=== PATIENT | male | born 1960 | race Caucasian/White ===

== ENCOUNTER 2020-12-24 18:30 | Inpatient (IN) | payer BC, SELFPAY ==
--- NOTE | 2020-12-24 19:36 | P.CONIM_ITS ---
Providers/Reason For Consult Consulting Physician/Specialty*: Maguire/urology Reason for Consult*: Obstructing LEFT ureteral calculus, elevated white count, status post remote splenectomy Attending Physician: Petar García MD History of Present Illness History of Present Illness Umberto Funez is a 60 year old male transferred as a direct admission from [facility] to [facility] for further evaluation of a LEFT distal ureteral calculus with hydroureteronephrosis proximal to the stone. No concerning additional features included a white count of 22,000 per ER physician and the potential risk for septic complications due to prior splenectomy. No clear cause of infectious concerns was identified at initial evaluation at [facility] so his presumed that he might have an infection related to the stone Initially he was seen on 12/23/2020 with complaints of hematuria that had begun on approximately 12/20/2020. Denied any dysuria frequency urgency. He had had some flank pain it was not described as significant. Work-up at that time showed a white count of 13.8, hemoglobin of 15. Creatinine was 0.9, liver functions normal. Urinalysis: 3+ blood, nitrite negative, leukocyte negative. CT scan showed a nonobstructing left renal calculus. A 7 x 8 mm left mid pole stone was identified and there is no hydronephrosis. It was presumed that maybe the stone was creating some irritation leading to the hematuria. He was discharged for expectant therapy with recommendations for urologic follow-up. Represented back to the emergency department at [facility] on 12/24/2020 with LEFT flank pain radiating to the left groin. Pain was described at its worst a 10 out of 10. Apparently no nausea or vomiting or changes in bowel habits. Not associated with any activity. Additional work-up included a white count of 22.5 up from 13.8 yesterday, the day before. Unchanged hemoglobin. Glucose was 148, creatinine was 1.0, liver functions were normal. UA again showed hematuria only without evidence of infection. CT scan was repeated and now it showed a 5 mm stone in the LEFT DISTAL URETER with new onset of hydronephrosis. Based on the patient's history of a splenectomy, and significant jump in his white count, the [facility] ED physician requested admission for IV antibiotics and further evaluation. The images from [facility] were able to be transmitted electronically. My review shows: On 12/23/2020 he had a series of stones in the mid left upper pole with no evidence of ureteral calculi. No hydronephrosis was noted On today's images there appear to be actually 2 stones in the left distal ureter, one at the left UVJ and a smaller 1 several centimeters. The numbers of stone seen in the interpolar and upper pole areas appear to be smaller and there is a couple little small stones in the left lower pole now that were not there on yesterday's CT scan. Additional medical concerns: 1. Hypertension 2. Diabetes mellitus 3. History of stones 4. Status post splenectomy 5. History of coronary artery disease status post stenting after mild heart attack 6. History of diverticulitis treated with antibiotics alone. Based on the concern for possible nonsimple obstructing stone it was requested that the patient be admitted to the hospitalist service and I would serve as a consult. For now we will continue IV antibiotic started in [facility] (Rocephin 1 g every 12 hours to be modified per hospitalist as indicated. Continue home medications for now I reviewed that from a urologic perspective this appears to be more just a stone causing typical stone symptoms in the absence of an infection. So far had not been out of completely rule out an infection associated with a stone but there is no clinical evidence of that. The wildcard appears to be the leukocytosis of unclear etiology and the risk factor of post splenectomy necessitates more aggressive management until clarified. A culture was sent at [facility] and is pending. KUB in the morning Repeat labs in the morning Keep on clear liquids for now just in case there is evidence of a progression of infection concern. Review of Systems Const: Denies: fever(s) or chills Eyes: Denies: change in vision or blurry vision ENMT: Denies: throat pain or hoarseness Card: Denies: chest pain, palpitations or dyspnea on exertion Resp: Denies: dyspnea, productive cough or wheezing GI: Reports: abdominal pain, nausea and vomiting (X1 in [facility] today); Denies: change in bowel habits : Reports: flank pain, urinary frequency, urinary urgency, urinary hesitancy and other (He reports some more recent chronic lower urinary tract symptoms possibly r) Musc: Reports: back pain; Denies: extremity swelling or joint redness Skin/Breast: Denies: rash Neuro: Denies: confusion, Slurred speech present or seizure-like activity Psych: Denies: anxiety or depression Endo: Denies: excessive sweating or flushing Bowen/Lymph: Reports: easy bruising All/Imm: Denies: urticaria or acute wheezing Meds/Allergies Home Medications and Allergies Home Medications Medication Instructions Recorded Confirmed Last Taken Type amlodipine [Norvasc] 10 mg PO BEDTIME 12/24/20 12/24/20 Unknown History aspirin 81 mg PO DAILY 12/24/20 12/24/20 Unknown History atorvastatin 20 mg PO BEDTIME 12/24/20 12/24/20 Unknown History clopidogrel [Plavix] 75 mg PO DAILY 12/24/20 12/24/20 Unknown History hydralazine 50 mg PO BID 12/24/20 12/24/20 Unknown History lisinopril 40 mg PO DAILY 12/24/20 12/24/20 Unknown History metformin 1,000 mg PO BID 12/24/20 12/24/20 Unknown History metoprolol succinate 25 mg PO DAILY 12/24/20 12/24/20 Unknown History Allergies Allergy/AdvReac Type Severity Reaction Status Date / Time No Known Allergies Allergy Verified 12/24/20 20:03 PFSH Acute PFSH: Surgical History (Updated 12/24/20 @ 19:52 by Sunny Maguire MD) History of coronary artery stent placement History of splenectomy Family History (Updated 12/24/20 @ 19:50 by Sunny Maguire MD) Other No significant family history Social History (Updated 12/24/20 @ 19:51 by Sunny Maguire MD) Smoking and tobacco status: never smoked Alcohol intake: never Substance/Drug Use: never Physical Exam Const: COMMON NORMALS: alert and well nourished GENERAL APPEARANCE: well kempt and well developed ORIENTATION/CONSCIOUSNESS: not confused OTHER: Uncomfortable due to left renal colic HENMT: COMMON NORMALS: normocephalic and atraumatic HEAD & SCALP: normocephalic and atraumatic Eye: COMMON NORMALS: conjunctivae normal and no scleral icterus CONJUNCTIVA: Yes conjunctivae normal Neck/C-Spine: COMMON NORMALS: full ROM GENERAL: Yes normal visual inspection Lymph: LYMPHATIC: no lymphadenopathy noted and no lymphedema noted Resp: COMMON NORMALS: normal respiratory effort EFFORT & INSPECTION: No labored and No Actively coughing Cardio: COMMON NORMALS: regular rate and regular rhythm RATE: regular rate RHYTHM: regular rhythm BRUITS: no carotid bruits GI: COMMON NORMALS: Soft to palpation and no masses PALPATION: Yes Soft to palpation and Yes Tenderness to palpation present (GI) (Left CVA) Details: LLQ and LUQ : COMMON NORMALS: Yes normal external exam, Yes Testes normal, Yes scrotum normal, Yes no scrotal swelling and Yes No hernias present BLADDER/KIDNEY EXAM: Yes CVA tenderness Back/Pelvis: GENERAL BACK: Yes CVA tenderness CVA tenderness: left Extremity: COMMON NORMALS: no clubbing, cyanosis or edema Neuro: COMMON NORMALS: no focal motor deficits SENSORIUM/ORIENTATION: Yes alert Psych: COMMON NORMALS: mental status grossly normal APPEARANCE: Yes grossly normal and Yes well kempt ATTITUDE: Yes calm and Yes engaged Skin: COMMON NORMALS: no rashes or lesions noted and no jaundice GENERAL SKIN EXAM: no rashes or lesions noted A&P Assessment and plan (1) Leukocytosis: Status: Acute (2) Left ureteral calculus: Status: Acute (3) Coronary artery disease: Status: Acute (4) Hypertension: Status: Acute (5) Diabetes: Status: Acute (6) Urolithiasis: Status: Acute Consult Attestations Medical Necessity Statement: Uncontrolled pain from left distal ureteral stone Coding Level of Care Code Acute Machine Operator Transplanter for Chg Fwd Exam Comprehensive Diagnoses Leukocytosis D72.829 Left ureteral calculus N20.1 Coronary artery disease I25.10 Hypertension I10 Diabetes E11.9 Urolithiasis N20.9 Time Spent (min) 95 Comment Including outside record review, film review, [id number] encounter time, documentation
[2020-12-24 20:23] VITALS: BMI 34.9
[2020-12-24 20:32] VITALS: BP 171/84; PULSE 61; RESP 18; TEMP 36.9; O2SAT 95
[2020-12-24] MEDS: HYDROcodone-acetaminophen 5-325 mg Tablet 1 TAB PO (21:36)
[2020-12-24] MEDS: atorvastatin 40 mg Tablet 20 MG PO (21:37)
[2020-12-24] MEDS: amlodipine 10 mg Tablet PO (21:37)
[2020-12-24] MEDS: sodium chlor 0.9% + KCl 20 mEq 20 MEQ/1,000 ML BAG 100 MEQ IV (22:00)
[2020-12-24] MEDS: cefTRIAXone 1,000 MG in sodium chloride 0.9% (plus) 50 ML 100 MG IV (22:02)
--- NOTE | 2020-12-24 23:06 | PM.HP ---
Providers/Chief Complaint Admitting Physician: Colette Bose MD Primary Care Provider: In [place], [place] Chief Complaint: L kidney stone, leukocytosis History of Present Illness Umberto Funez is a 60 year old male who presented to [facility] emergency room with complaints of worsening left flank pain, extending into his groin. He had been seen in the emergency room there on December 23 for hematuria and found to have nonobstructing kidney stones. White count was 13,000 and BUN and creatinine 13/0.9. He was discharged with plan for outpatient follow-up. On December 24 he was not necessarily having any further hematuria but did have the flank pain is noted. It was increasing in severity. Repeat CT imaging indicated an obstructive stone in the left this time and white count was up to 22,000. He was given Rocephin and decision was made to transfer for urological evaluation. BUN and creatinine were 18/1.0. Case was discussed with Dr. Maguire here who recommended admission to hospitalist service. Dr. Lisa excepted Mr. Funez. He continues to have flank pain on the left side that he describes as severe. He has no prior history of kidney stones. He does have a sister with kidney stones. Patient is from [facility] and was in [facility] area visiting for a month. He has had 1 episode of vomiting which she attributed to severe pain and some nausea. Continues to have some hematuria. No reported fevers. Review of Systems Const: Denies: fever(s) or chills Eyes: Denies: change in vision ENMT: Denies: throat pain or nasal congestion Card: Reports: other (Exercising regularly now); Denies: chest pain, palpitations or edema Resp: Denies: dyspnea, productive cough or non-productive cough GI: Reports: nausea and vomiting (X1 when his pain was the worst); Denies: diarrhea, constipation, hematochezia or melena : Reports: flank pain and hematuria; Denies: difficulty urinating or dysuria Musc: Reports: back pain; Denies: extremity pain Skin/Breast: Denies: rash or sores Neuro: Denies: headache(s), numbness in extremities or weakness in extremities Psych: Denies: anxiety or depression Bowen/Lymph: Denies: easy bruising or easy bleeding Medications/Allergies Home Medications Medication Instructions Recorded Confirmed Last Taken Type amlodipine [Norvasc] 10 mg PO BEDTIME 12/24/20 12/24/20 Unknown History atorvastatin 20 mg PO BEDTIME 12/24/20 12/24/20 Unknown History clopidogrel [Plavix] 75 mg PO DAILY 12/24/20 12/24/20 Unknown History hydralazine 50 mg PO BID 12/24/20 12/24/20 Unknown History lisinopril 40 mg PO DAILY 12/24/20 12/24/20 Unknown History metformin 1,000 mg PO BID 12/24/20 12/24/20 Unknown History metoprolol succinate 25 mg PO DAILY 12/24/20 12/24/20 Unknown History aspirin [Aspirin Low-Strength] 81 mg PO DAILY 12/25/20 12/25/20 Unknown History Allergies Allergy/AdvReac Type Severity Reaction Status Date / Time No Known Allergies Allergy Verified 12/24/20 20:03 PFSH Acute PFSH: Medical History (Updated 12/25/20 @ 09:18 by Colette Bose MD) Coronary artery disease Diabetes mellitus, type II non insulin requiring Diverticulosis with several admissions for diverticulitis Hyperlipidemia Hypertension Surgical History (Updated 12/25/20 @ 09:07 by Colette Bose MD) History of coronary artery stent placement History of splenectomy Family History (Updated 12/25/20 @ 09:19 by Colette Bose MD) Sister Kidney stones Social History Smoking and tobacco status: never smoked Alcohol intake: never Substance/Drug Use: never Vitals/I&O/Wt Last Vital Signs Temp 98.4 F 12/24/20 20:32 Pulse 61 12/24/20 20:32 Resp 18 12/24/20 20:32 BP 171/84 12/24/20 20:32 Pulse Ox 95 12/24/20 20:32 12/24/20 12/24/20 12/25/20 14:59 22:59 06:59 Output Total 200 / 200 Balance -200 / -200 Weight last 48 hrs Weight 95.254 kg Physical Exam Narrative: EXAM NARRATIVE: Constitutional: Awake and alert, able to provide history HEENT: Normocephalic, extraocular movements are intact, moist membranes Neck: Supple Respiratory: Clear to auscultation bilaterally Cardiovascular: Regular rhythm Abdomen: Left flank pain extending into the left lower quadrant and left groin, normoactive bowel sounds Extremities: Trace edema, no tenderness Skin: Dry, no rashes or significant bruising Neuro: Speech clear, face symmetric, moves all extremities Psych: Normal affect Data : 12/25/20 05:16 12/25/20 05:16 Other data: Prior or outside records reviewed: Records from [facility] emergency room Discussed with other providers: Dr Maguire A&P Assessment and plan (1) Urolithiasis: With hematuria, left flank pain, left groin pain Status: Acute Qualifiers: Urinary calculus location: ureter Qualified Code(s): N20.1 - Calculus of ureter (2) Leukocytosis: Reports chronic leukocytosis which upon review of laboratory history and in destiny on his phone looks to be baseline of 12-13,000 over the several years I was able to view. Current values are higher than baseline and concerning for reaction to acute infectious process. No recent fevers. No upper respiratory symptoms. Has had one episode of mild vomiting which he attributes to pain. No diarrhea or other recent change in bowel movements. 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 transplanted heart: [place] heart Associated angina: without angina Qualified Code(s): I25.10 - Atherosclerotic heart disease of [place] coronary artery without angina pectoris Additional A&P Information Inpatient admission Appreciate Dr. Maguire's assistance in care Continue Rocephin Repeat CBC and renal function in the morning Monitor urinary symptoms and urine output Continue IV fluids Pain control Flomax Monitor for development of GI symptoms or other potential foci of infection Continue home medications with the exception of Metformin SCDs for DVT prophylaxis, no pharmacological DVT prophylaxis secondary to hematuria and potential need for intervention Supportive care otherwise Plans were discussed with patient and he was given an opportunity to ask questions Anticipated disposition Home with those whom he is staying with in the area. He will need local provider to follow-up with while he is here. Plan had been for him to be here for about a month before heading back to [place] where he lives. Full code Attestations Medical Necessity Statement*: Anticipated stay greater than two midnights in patient with kidney stones, elevation in wbc, asplenic. Plans as indicated. Coding Level of Care Code Acute Electroencephalographic Technologist for [facility] Fwd Diagnoses Urolithiasis N20.1 Urinary calculus location: ureter Leukocytosis D72.829 Leukocytosis type: unspecified Diabetes E11.65 Diabetes mellitus type: type 2 Diabetes mellitus correction insulin use: without correction use Diabetes mellitus complication status: with hyperglycemia Hypertension I10 Hypertension type: essential hypertension Coronary artery disease I25.10 Coronary Disease-Associated Artery/Lesion type: [place] artery [place] vs. transplanted heart: [place] heart Associated angina: without angina
[2020-12-24 23:14] VITALS: RESP 16
[2020-12-24] MEDS: morphine 4 mg/mL SDV 1 mL 2 MG IVP (23:14)
[2020-12-25] VITALS (18 sets, daily range): BP systolic 100–161; BP diastolic 64–96; PULSE 62–77; RESP 11–18; TEMP 36.3–37.4; O2SAT 93–97
--- NOTE | 2020-12-25 | SCC_ITS ---
Procedure Done: 1. Cystoscopy left retrograde ureteropyelogram 2. Left ureteroscopy laser lithotripsy, stent (7 Kis[place]ili by 26 cm double-pigtail without string) 21.9 seconds of fluoroscopic guidance, for a cumulative dose of 4.09 mGy, was provided to Dr. Maguire by the radiology department. C-arm images of the abdomen were saved for the patient's permanent record. [facility]
[2020-12-25] MEDS: HYDROcodone-acetaminophen 5-325 mg Tablet 1 TAB PO ×3 (01:59→21:41)
[2020-12-25] MEDS: morphine 4 mg/mL SDV 1 mL 2 MG IVP (03:27)
--- NOTE | 2020-12-25 06:00 | XRR_ITS ---
PROCEDURE INFORMATION: Exam: XR Abdomen Exam date and time: 12/25/2020 6:00 AM Age: 60 years old Clinical indication: Pain and condition or disease; Kidney or ureter condition; Calculus (stone) in ureter; Other: Left flank pain; Prior surgery; Surgery type: Spleen; Additional info: Left distal stone TECHNIQUE: Imaging protocol: XR of the abdomen. Views: Frontal supine view of the abdomen. 1 View. COMPARISON: CT abdomen pelvis wo con [id number] 12/24/2020 12:27 PM FINDINGS: Gastrointestinal tract: There is a moderate amount of stool throughout the colon, suggestive of constipation. There is mildly air distended loops of small bowel in the right lower quadrant. No air-fluid levels seen. Intraperitoneal space: No pneumoperitoneum identified. There is a 1.4 cm calcific density projecting over the left mid kidney, corresponding to nonobstructing stone seen on recent abdomen CT. Bones/joints: Mild dextrocurvature of the lumbar spine and multilevel degenerative changes seen. XR/XR KUB [id number] IMPRESSION: 1. Nonspecific bowel gas pattern. 2. Imaging findings suggestive of constipation.
[2020-12-25 06:15] LABS: Basophils # 0.1 10^3/uL (0.0-0.1); Basophils % 0.3 %; Eosinophils # 0.1 10^3/uL (0.0-0.8); Eosinophils % 0.3 %; Hematocrit 44.8 % (42.0-52.0); Hemoglobin 14.4 g/dL (11.7-16.6); Lymphocytes # 3.1 10^3/uL (0.8-4.8); Lymphocytes % 13.7 %; Mean Corpuscular HGB Conc 32.1 g/dL (30.0-36.0); Mean Corpuscular Hemoglobin 29.2 pg (28.0-34.0); Mean Corpuscular Volume 90.9 fL (80-94); Mean Platelet Volume 12.9 fL (7.4-10.4); Monocytes # 2.8 10^3/uL (0.2-0.9); Monocytes % 12.7 %; Neutrophils % 72.6 %; Nucleated Red Blood Cells % 0 %; Platelet Count 209 10^3/cmm (130-400); Red Blood Count 4.93 10^6/uL (4.1-5.3); Red Cell Distribution Width 15.6 % (12.1-15.1); White Blood Count 22.3 10^3/uL (4.0-10.0)
[2020-12-25 06:28] LABS: Alanine Aminotransferase 22 U/L (0-41); Albumin Level 3.6 g/dL (3.5-5.2); Alkaline Phosphatase 71 IU/L (40-130); Anion Gap 14.9 (5-19); Aspartate Amino Transferase 21 U/L (0-40); Blood Urea Nitrogen 14 mg/dL (8-23); Calcium 8.1 mg/dL (8.5-10.5); Carbon Dioxide 25 mmol/L (22-29); Chloride 104 mmol/L (98-107); Globulin 2.8 g/dL (1.3-4.6); Glomerular Filtration Rate 55.9 mL/min (90-130); Glucose 184 mg/dL (65-115); Osmolality Calculated 295 mOsm/kg (285-295); Potassium 3.9 mmol/L (3.5-5.1); Sodium 140 mmol/L (136-145); Total Bilirubin 0.6 mg/dL (0.15-1.2); Total Protein 6.4 g/dL (6.6-8.7)
--- NOTE | 2020-12-25 07:57 | XR_ITS ---
WS: [id number] PORTABLE CHEST HISTORY: sob COMPARISON: None available. Lung volumes are decreased due to poor inspiration. Very minimal atelectasis posterior to the LEFT he art. No pleural effusion or pneumothorax. Cardiac size: Normal. Mediastinum/Aorta: Normal mediastinum. No osseous abnormality seen. XR/XR chest 1V portable [id number] IMPRESSION: Very minimal subsegmental atelectasis posterior to the LEFT heart. No pneumonia .
[2020-12-25 08:41] LABS: C Reactive Protein 25.8 mg/L (0.0-4.9)
[2020-12-25 08:48] LABS: Procalcitonin 0.21 ng/mL (0-0.5)
--- NOTE | 2020-12-25 09:20 | ECG_ITS ---
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 [email or web address]
[2020-12-25 09:36] LABS: Erythrocyte Sedimentation Rate 10 mm/hr (0-10)
--- NOTE | 2020-12-25 09:48 | PC.CHAP ---
Pastoral Care Encounter/Spiritual Assessment Type of Contact [] Declined center aisle cashier visit [] Patient/Family/Request visit [] Outpatient visit [] Follow-up visit [] Physician referral [] Code/Alert x] Routine visit [] Staff referral [] Actively dying [x] Patient sleeping [] Family support [] [] Out of room [] Palliative care [] [] Receiving care in room [] Pre-surgical visit [] Trauma [] Long length of stay [] ICU visit [] Other: Relational/Emotional Strength [] Patient feels connected with others/family/visitors/staff [] Distress [] Loneliness/isolation [] Abandonment Spirituality of Patient [] Person of Jocelin [] Attends Yarsani of their Jocelin [] Believes in Prayer [] Reads Bible or Anabaptism materials [] There are Spiritual issues to be addressed Emergency Room Orderly Interventions [] Prayer [] Active listening [] Non-anxious presence [] Spiritual/emotional support [] Crisis/trauma care [] Spiritual counseling [] Bereavement support [] Provided bereavement packet [] Provided Bible/devotional materials [] Provided toy/stuffed animal, coloring book to patient or family member [] Provided Communion [] Anointing/[place] [] Salvation [] Completed spiritual assessment [] Other: Impact on Illness or Injury [] Angry [] Fearful [] Anxious [] Often cries [] Exhaustion [] Unable to work [] Unable to attend denominational [] Unable to walk/stand [] Unable to read [] Unable to drive [] Unable to eat/drink [] Unable to sleep [] Unable to be with family [] Patient intubated [] Other: Summary Time spent with patient
[2020-12-25] MEDS: aspirin 81 mg EC Tablet PO (10:29)
[2020-12-25] MEDS: docusate sodium 100 mg Capsule PO ×2 (10:29→21:38)
[2020-12-25] MEDS: lisinopril 20 mg Tablet 40 MG PO (10:29)
[2020-12-25] MEDS: metoprolol succinate ER (24 HR) 25 mg Tablet PO (10:29)
[2020-12-25] MEDS: hyDRALAzine 50 mg Tablet PO ×2 (10:30→21:38)
[2020-12-25] MEDS: famotidine 20 mg Tablet PO ×2 (10:30→21:38)
[2020-12-25] MEDS: clopidogrel 75 mg Tablet PO (10:30)
[2020-12-25] MEDS: tamsulosin 0.4 mg Capsule PO ×2 (10:31→10:56)
[2020-12-25] MEDS: sodium chlor 0.9% + KCl 20 mEq 20 MEQ/1,000 ML BAG 75 MEQ IV ×2 (10:56→21:36)
[2020-12-25] MEDS: piperacillin-tazobactam 3.375 GM in sodium chloride 0.9% (plus) 50 ML IV ×2 (10:58→21:37)
--- NOTE | 2020-12-25 11:22 | USCV_ITS ---
Umberto Funez Age: 60 Gender: M : 1960 Exam Date: 12/25/2020 16:13 Ordering Phys: Petar García MD Technologist: Exam Location: [facility] Indication: EDEMA HISTORY: Lower extremity edema. PROCEDURES: The venous duplex Doppler examination of both lower extremities was performed in the standard fashion. The following venous structures were evaluated: common femoral vein, profunda vein, proximal portion of the greater saphenous vein, superficial femoral vein, and the popliteal vein. In addition, the posterior tibial and peroneal trunk were evaluated. Bilaterally, the common femoral, superficial femoral, profunda femoral, popliteal, posterior tibial, greater saphenous veins, and the peroneal trunk were identified and interrogated in the standard fashion. These veins were found to be easily compressible with spontaneous blood flow. No evidence of insufficiency or thrombus noted. FINDINGS: Normal 2-D Doppler and augmentation and compressibility throughout the lower extremity venous structures. Additional imaging through the proximal calf veins also reveals no thrombus. Limited evaluation of the greater saphenous vein is patent with no thrombus.. CONCLUSIONS No evidence of DVT in the above-mentioned identifiable veins. Dr Isabela Stephenson MD [facility] (Electronically Signed) Final Date: 26 December 2020 14:02 S
[2020-12-25 12:41] LABS: Glucose Point of Care 145 mg/dL (70-110)
[2020-12-25 12:43] LABS: Positive M 1
[2020-12-25 12:44] LABS: White Blood Count 25.1 10^3/uL (4.0-10.0)
[2020-12-25 12:47] LABS: LAB Peripheral Smear Sent for Review
[2020-12-25 12:59] LABS: Total Cells Counted 100 (0-100)
[2020-12-25 13:03] LABS: Absolute Eosinophils 0.5 10^3/cmm (0.0-0.7); Absolute Neutrophil 19.3 10^3/cmm (1.4-6.5); Absolute Segmented Neutrophil 19.3 10/cmm (1.6-7.1); Eosinophils 2 %; Lymphocytes 8 %; Lymphocytes Absolute 4.3 10^3/cmm (1.2-3.4); Platelet Estimate Normal (Normal); Segmented Neutrophils 77 %
[2020-12-25 13:04] LABS: Poikilocytosis Trace
--- NOTE | 2020-12-25 13:09 | PM.PN ---
Subjective Subjective: Interval history: Still having significant pain overnight. Was requiring both parenteral and oral narcotics. White count this morning was 22 unchanged. This afternoon at 12 it was 25. He is now having a low-grade temperature at 99.3. In addition his creatinine has bumped up slightly. No evidence of hemodynamic instability. The source of his leukocytosis is still in the history but he has only been identified right now is having a stone. He has had 2 urinalysis that have been unremarkable 1 before there was any evidence of obstruction. Based on the changes today I recommended proceeding later this afternoon urgently for a cystoscopy and stent placement and if everything goes well intraoperatively ureteroscopy possible laser and stone fragment removal. This takes into consideration the higher risk of infectious complications post splenectomy. Medications: Reviewed: Yes Vitals/I&O/Wt Last Vital Signs Temp 99.3 F 12/25/20 11:55 Pulse 76 12/25/20 11:55 Resp 18 12/25/20 11:55 BP 157/89 12/25/20 11:55 Pulse Ox 93 12/25/20 11:55 12/24/20 12/25/20 12/25/20 22:59 06:59 14:59 Intake Total 50 / 50 120 / 170 1120 / 1120 Output Total 200 / 200 700 / 900 400 / 400 Balance -150 / -150 -580 / -730 720 / 720 Weight last 48 hrs Weight 210 lb Physical Exam Const: COMMON NORMALS: no acute distress, alert and well nourished GENERAL APPEARANCE: well kempt and well developed ORIENTATION/CONSCIOUSNESS: not confused HENMT: COMMON NORMALS: normocephalic and atraumatic HEAD & SCALP: normocephalic and atraumatic Eye: COMMON NORMALS: conjunctivae normal and no scleral icterus CONJUNCTIVA: Yes conjunctivae normal Neck/C-Spine: COMMON NORMALS: full ROM GENERAL: Yes normal visual inspection Resp: COMMON NORMALS: normal respiratory effort EFFORT & INSPECTION: No labored and No Actively coughing : MALE GROIN/PERINEUM EXAM: No ecchymosis PENIS: normal penis MEATUS: meatus normal, no meatla discharge and No Blood at meatus present SCROTUM: Yes testes descended bilaterally, No edematous and No scrotal swelling TESTES: No absent testicle, No testicular tenderness, No testicular mass, Yes epididymides normal and No epididymal tenderness Extremity: COMMON NORMALS: no clubbing, cyanosis or edema Neuro: COMMON NORMALS: no focal motor deficits SENSORIUM/ORIENTATION: Yes alert Psych: COMMON NORMALS: mental status grossly normal APPEARANCE: Yes grossly normal and Yes well kempt ATTITUDE: Yes calm and Yes engaged Skin: COMMON NORMALS: no rashes or lesions noted and no jaundice GENERAL SKIN EXAM: no rashes or lesions noted Data : 12/25/20 12:13 12/25/20 05:16 Micro: Microbiology 12/25/20 12:19 Blood Culture - Preliminary Blood SPECIMEN COLLECTED 12/25/20 12:13 Blood Culture - Preliminary Blood SPECIMEN COLLECTED A&P Assessment and plan (1) Left ureteral calculus: Based on the above information I recommended taken to the operating room this afternoon for cystoscopy, retrograde, ureteroscopy, laser, stent if all goes well. At the very minimum though the goal will be to place a stent to relieve obstruction. 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 Will be going to surgery today. Coding Level of Care Code Acute [facility] Retrieval [facility] Diagn[facility] Left ureteral calculus N20.1 History of splenectomy Z90.81 Diabetes E11.65 Diabetes mellitus type: type 2 Diabetes mellitus terminal gauger supervisor insulin use: without terminal gauger supervisor use Diabetes mellitus complication status: with hyperglycemia Leukocytosis D72.829 Leukocytosis type: unspecified Hypertension I10 Hypertension type: essential hypertension
[2020-12-25 13:31] LABS: Hematocrit 45.8 % (42.0-52.0); Hemoglobin 14.9 g/dL (11.7-16.6); Mean Corpuscular HGB Conc 32.5 g/dL (30.0-36.0); Mean Corpuscular Hemoglobin 29.2 pg (28.0-34.0); Mean Corpuscular Volume 89.8 fL (80-94); Platelet Count 216 10^3/cmm (130-400); Red Cell Distribution Width 15.4 % (12.1-15.1)
--- NOTE | 2020-12-25 14:07 | PM.PN ---
Subjective Subjective: Interval history: This morning patient was examined, he does report that he recently traveled from [facility] to [place], no calf pain, no calf swelling, his white counts of up to 22.5, had a low-grade fever, denies any known exposure to COVID-19, does persistently have left flank pain with hematuria, does report a history of extensive diverticulitis, he tells me that it was quite severe that his physician was thinking about a colon resection, he does have some left lower quadrant pain, but is more around the flank, he is constipated, no bloody or black stools Vitals/I&O/Wt Last Vital Signs Temp 99.3 F 12/25/20 11:55 Pulse 76 12/25/20 11:55 Resp 18 12/25/20 11:55 BP 157/89 12/25/20 11:55 Pulse Ox 93 12/25/20 11:55 12/24/20 12/25/20 12/25/20 22:59 06:59 14:59 Intake Total 50 / 50 120 / 170 1120 / 1120 Output Total 200 / 200 700 / 900 400 / 400 Balance -150 / -150 -580 / -730 720 / 720 Weight last 48 hrs Weight 95.254 kg Physical Exam Const: COMMON NORMALS: no acute distress and patient oriented x3 Resp: COMMON NORMALS: normal respiratory effort, No retractions, No use of accessory muscles and clear to auscultation bilaterally AUSCULTATION: clear to auscultation bilaterally Cardio: COMMON NORMALS: regular rate, regular rhythm, S1 normal heart sound present and S2 normal heart sound present RATE: regular rate RHYTHM: regular rhythm HEART SOUNDS: S1 normal heart sound present and S2 normal heart sound present GI: COMMON NORMALS: Normal to inspection, nondistended, normoactive bowel sounds present and Soft to palpation INSPECTION: Yes normal to inspection PALPATION: Yes Soft to palpation and Yes Tenderness to palpation present (GI) Details: LLQ; Negative for RLQ, LUQ and RUQ Back/Pelvis: OTHER: Left CVA tenderness Extremity: COMMON NORMALS: no pedal edema Neuro: COMMON NORMALS: patient oriented x3 Psych: COMMON NORMALS: mental status grossly normal Data : 12/25/20 12:13 12/25/20 05:16 Micro: Microbiology 12/25/20 12:19 Blood Culture - Preliminary Blood SPECIMEN COLLECTED 12/25/20 12:13 Blood Culture - Preliminary Blood SPECIMEN COLLECTED A&P Assessment and plan (1) Urolithiasis: With hematuria, left flank pain, left groin pain Status: Acute Qualifiers: Urinary calculus location: ureter Qualified Code(s): N20.1 - Calculus of ureter (2) Leukocytosis: -Increasing leukocytosis up to 25.1, manual differential shows atypical lymphocytes, absolute neutrophilia, low-grade fevers 99.3, ESR 11, CRP 25.8, pro-Pérez 0.21 complaints of left flank pain, hematuria -CT scan from [facility] does show left nephrolithiasis, obstructive, w evidence hydronephrosis -Status post splenectomy -Findings concerning for obstructive uropathy, left pyelonephritis, UTI -He does have a history of diverticulitis, does have some left lower quadrant pain, could have some component of left diverticulitis, but significant radiographic evidence as of yet Plan: -Admit to general medical floors -Keep n.p.o. -Broaden antibiotic coverage to Zosyn -Planning on going to the OR this afternoon, Dr. Maguire on consult -Follow blood cultures, blood cultures from [facility], urine cultures -Monitor for fevers -Pain control -Zofran for nausea -Continue IV hydration -Flomax -Continue low-dose sliding scale -SCDs, hold off on pharmacologic DVT prophylaxis due to hematuria and decisions for interventions Status: Acute Qualifiers: Leukocytosis type: unspecified Qualified Code(s): D72.829 - Elevated white blood cell count, unspecified (3) Diabetes: Chronically on Metformin Status: Chronic Qualifiers: Diabetes mellitus type: type 2 Diabetes mellitus prison insulin use: without prison use Diabetes mellitus complication status: with hyperglycemia Qualified Code(s): E11.65 - Type 2 diabetes mellitus with hyperglycemia (4) Hypertension: Chronically on lisinopril, amlodipine and hydralazine Status: Chronic Qualifiers: Hypertension type: essential hypertension Qualified Code(s): I10 - Essential (primary) hypertension (5) Coronary artery disease: Chronically on aspirin, Plavix, atorvastatin and metoprolol Status: Chronic Qualifiers: Coronary Disease-Associated Artery/Lesion type: [place] artery [place] vs. transplanted heart: [place] heart Associated angina: without angina Qualified Code(s): I25.10 - Atherosclerotic heart disease of [place] coronary artery without angina pectoris (6) History of splenectomy: Status: Acute Additional A&P Information Plans were discussed with patient and he was given an opportunity to ask questions Anticipated disposition Home with those whom he is staying with in the area. He will need local provider to follow-up with while he is here. Plan had been for him to be here for about a month before heading back to [place] where he lives. 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 [place] Diagnoses Urolithiasis N20.1 Urinary calculus location: ureter Leukocytosis D72.829 Leukocytosis type: unspecified Diabetes E11.65 Diabetes mellitus type: type 2 Diabetes mellitus stone engraver insulin use: without stone engraver use Diabetes mellitus complication status: with hyperglycemia Hypertension I10 Hypertension type: essential hypertension Coronary artery disease I25.10 Coronary Disease-Associated Artery/Lesion type: [place] artery [place] vs. transplanted heart: [place] heart Associated angina: without angina History of splenectomy Z90.81
--- NOTE | 2020-12-25 16:23 | ANES.PREANE2 ---
Pre-Anesthetic Assessment Pre-Anesthetic Assessment: Height/Weight: Height 1.65 m Weight 95.254 kg Temp Pulse Resp BP Pulse Ox 98.9 F 67 18 137/64 96 12/25/20 16:00 12/25/20 16:00 12/25/20 16:00 12/25/20 16:00 12/25/20 16:00 Proposed Procedure: Operation Date: 12/25/20 17:00 Proposed Procedures s Cystoscopy(Not Applicable) - Sunny Maguire MD s Retrograde Pyelogram(Left) - Sunny Maguire MD s Ureteroscopy(Left) - Sunny Maguire MD p Laser Lithotripsy(Left) - Sunny Maguire MD s Ureteral Stent Placement(Left) - Sunny Maguire MD Was Beta Clayton taken within 24 hours: Yes Was Clonidine taken within 24 hours: N/A Meds/Allergies Current Medications: Current Medications Generic Name Dose Route Start Last Admin Trade Name Freq PRN Reason Stop Dose Admin Hydrocodone Bitart /Acetaminophen 1 tab 12/24/20 20:33 12/25/20 10:58 Hydrocodone-Acet aminophen 5-325 Mg Tablet PO 1 tab Q4H PRN Administration MODERATE TO SEVER E PAIN Amlodipine Besylat e 10 mg 12/24/20 21:00 12/24/20 21:37 Amlodipine 10 Mg Tablet PO 10 mg BEDTIME LESLYE Administration Aspirin 81 mg 12/25/20 09:00 12/25/20 10:29 Aspirin 81 Mg Ec Tablet PO 81 mg DAILY LESLYE Administration Atorvastatin Calci um 20 mg 12/24/20 21:00 12/24/20 21:37 Atorvastatin 40 Mg Tablet PO 20 mg BEDTIME LESLYE Administration Clopidogrel Bisulf ate 75 mg 12/25/20 09:00 12/25/20 10:30 Clopidogrel 75 M g Tablet PO 75 mg DAILY LESLYE Administration Docusate Sodium 100 mg 12/25/20 09:00 12/25/20 10:29 Docusate Sodium 100 Mg Capsule PO 100 mg BID LESLYE Administration Famotidine 20 mg 12/25/20 09:00 12/25/20 10:30 Famotidine 20 Mg Tablet PO 20 mg BID LESLYE Administration Hydralazine HCl 50 mg 12/25/20 09:00 12/25/20 10:30 Hydralazine 50 M g Tablet PO 50 mg BID LESLYE Administration Potassium Chloride /Sodium Chloride 20 meq in 1,000 m ls @ 75 mls/hr 12/24/20 20:45 12/25/20 10:56 Sodium Chlor 0.9 % + Kcl 20 Meq IV 75 mls/hr .[id number] LESLYE Administration Piperacillin Sod/T azobactam 50 mls @ 12.5 mls /hr 12/25/20 09:00 12/25/20 15:22 Sod 3.375 gm/ So dium Chloride IV Infused Q8H LESLYE Infusion Insulin Aspart 0 unit 12/25/20 12:00 12/25/20 13:20 Insulin Aspart 1 00 Unit/1 Ml SUBCUT Not Given [facility] Protocol Lisinopril 40 mg 12/25/20 09:00 12/25/20 10:29 Lisinopril 20 Mg Tablet PO 40 mg DAILY LESLYE Administration Metoprolol Succina te 25 mg 12/25/20 09:00 12/25/20 10:29 Metoprolol Succi max Er (24 Hr) 25 Mg Tablet PO 25 mg DAILY LESLYE Administration Morphine Sulfate 2 mg 12/24/20 20:33 12/25/20 03:27 Morphine 4 Mg/Ml Sdv 1 Ml IVP 2 mg Q4H PRN Administration SEVERE PAIN Tamsulosin HCl 0.4 mg 12/25/20 08:25 12/25/20 10:56 Tamsulosin 0.4 M g Capsule PO 0.4 mg DAILY ELSLYE Administration PFSH Anesthesia PFSH: Medical History (Updated 12/25/20 @ 09:18 by Colette Bose MD) Coronary artery disease Diabetes mellitus, type II non insulin requiring Diverticulosis with several admissions for diverticulitis Hyperlipidemia Hypertension Surgical History (Updated 12/25/20 @ 14:09 by Petar García MD) History of coronary artery stent placement History of splenectomy Family History (Updated 12/25/20 @ 09:19 by Colette Bose MD) Sister Kidney stones Social History Smoking and tobacco status: never smoked Alcohol intake: never Substance/Drug Use: never Data Anesthesia CBC & Chem 7: 12/25/20 12:13 12/25/20 05:16 Other Labs: Laboratory Results - last 48 hr 07/06/21 07/06/21 07/06/21 05:16 05:16 05:16 WBC 22.3 H RBC 4.93 Hgb 14.4 Hct 44.8 MCV 90.9 MCH 29.2 MCHC 32.1 RDW 15.6 H Plt Count 209 MPV 12.9 H Neut % (Auto) 72.6 Lymph % (Auto) 13.7 Meagher % (Auto) 12.7 Eos % (Auto) 0.3 Baso % (Auto) 0.3 Neut # (Auto) 16.20 H Lymph # (Auto) 3.1 Meagher # (Auto) 2.8 H Eos # (Auto) 0.1 Baso # (Auto) 0.1 Nucleated RBC % (auto) 0 Total Counted Atypical Lymphs % Absolute Neutrophils Segmented Neutrophils Abs Segm Neuts (Man) Band Neutrophils Abs Band Neuts (Man) Absolute Lymphocytes Lymphocytes (Manual) Monocytes (Manual) Absolute Monocytes Eosinophils (Manual) Absolute Eosinophils Basophils (Manual) Absolute Basophils Nucleated RBCs # 0.0 Platelet Estimate Poikilocytosis ESR 10 Sodium 140 Potassium 3.9 Chloride 104 Carbon Dioxide 25 Anion Gap 14.9 BUN 14 Creatinine 1.3 H GFR Calculation 55.9 L Glucose 184 H POC Glucose Calculated Osmolality 295 Calcium 8.1 L Total Bilirubin 0.6 AST 21 ALT 22 Alkaline Phosphatase 71 C-Reactive Protein Total Protein 6.4 L Albumin 3.6 Globulin 2.8 Procalcitonin 12/25/20 12/25/20 07 05:16 11:46 12:13 WBC 25.1 H RBC 5.10 Hgb 14.9 Hct 45.8 MCV 89.8 MCH 29.2 MCHC 32.5 RDW 15.4 H Plt Count 216 MPV 13.0 H Neut % (Auto) Lymph % (Auto) Meagher % (Auto) Eos % (Auto) Baso % (Auto) Neut # (Auto) Lymph # (Auto) Meagher # (Auto) Eos # (Auto) Baso # (Auto) Nucleated RBC % (auto) Total Counted 100 Atypical Lymphs % 9.0 H Absolute Neutrophils 19.3 H Segmented Neutrophils 77 Abs Segm Neuts (Man) 19.3 H Band Neutrophils 0.0 Abs Band Neuts (Man) 0.0 Absolute Lymphocytes 4.3 H Lymphocytes (Manual) 8 Monocytes (Manual) 4.0 Absolute Monocytes 1.0 H Eosinophils (Manual) 2 Absolute Eosinophils 0.5 Basophils (Manual) 0.0 Absolute Basophils 0.0 Nucleated RBCs # Platelet Estimate Normal Poikilocytosis Trace ESR Sodium Potassium Chloride Carbon Dioxide Anion Gap BUN Creatinine GFR Calculation Glucose POC Glucose 145 H Calculated Osmolality Calcium Total Bilirubin AST ALT Alkaline Phosphatase C-Reactive Protein 25.8 H Total Protein Albumin Globulin Procalcitonin 0.21 Micro: Microbiology 12/25/20 12:19 Blood Culture - Preliminary Blood SPECIMEN COLLECTED 12/25/20 12:13 Blood Culture - Preliminary Blood SPECIMEN COLLECTED Cardiac Studies: No Data to Display
--- NOTE | 2020-12-25 16:28 | P.ANESASSM_ITS ---
Pre-Anesthetic Assessment Pre-Anesthetic Assessment: Height/Weight: Height 1.65 m Weight 95.254 kg Temp Pulse Resp BP Pulse Ox 98.9 F 67 18 137/64 96 12/25/20 16:00 12/25/20 16:00 12/25/20 16:00 12/25/20 16:00 12/25/20 16:00 Proposed Procedure: Operation Date: 12/25/20 17:00 Proposed Procedures s Cystoscopy(Not Applicable) - Sunny Maguire MD s Retrograde Pyelogram(Left) - Sunny Maguire MD s Ureteroscopy(Left) - Sunny Maguire MD p Laser Lithotripsy(Left) - Sunny Maguire MD s Ureteral Stent Placement(Left) - Sunny Maguire MD Was Beta Clayton taken within 24 hours: Yes Was Clonidine taken within 24 hours: N/A Social: Social History: No alcohol and No tobacco Exam: Pre-Anes Outpt Exam: alert, oriented x 3, clear to auscultation bilaterally and regular rate & rhythm Airway: Submandibular: WNL Cervical ROM: WNL MP: 2 Pulmonary: Pulmonary: None reported CV/HEM: CV/HEM: CAD and HTN Hepatic: Hepatic: None reported GI: GI: None reported Metabolic: Metabolic: DM Comments: Recurrent renal calculi Musc/skel: Musc/skel: None reported Neuropsych: Neuropsych: None reported Meds/Allergies Current Medications: Current Medications Generic Name Dose Route Start Last Admin Trade Name Freq PRN Reason Stop Dose Admin Hydrocodone Bitart /Acetaminophen 1 tab 12/24/20 20:33 12/25/20 10:58 Hydrocodone-Acet aminophen 5-325 Mg Tablet PO 1 tab Q4H PRN Administration MODERATE TO SEVER E PAIN Amlodipine Besylat e 10 mg 12/24/20 21:00 12/24/20 21:37 Amlodipine 10 Mg Tablet PO 10 mg BEDTIME LESLYE Administration Aspirin 81 mg 12/25/20 09:00 12/25/20 10:29 Aspirin 81 Mg Ec Tablet PO 81 mg DAILY LESLYE Administration Atorvastatin Calci um 20 mg 12/24/20 21:00 12/24/20 21:37 Atorvastatin 40 Mg Tablet PO 20 mg BEDTIME LESLYE Administration Clopidogrel Bisulf ate 75 mg 12/25/20 09:00 12/25/20 10:30 Clopidogrel 75 M g Tablet PO 75 mg DAILY LESLYE Administration Docusate Sodium 100 mg 12/25/20 09:00 12/25/20 10:29 Docusate Sodium 100 Mg Capsule PO 100 mg BID LESLYE Administration Famotidine 20 mg 12/25/20 09:00 12/25/20 10:30 Famotidine 20 Mg Tablet PO 20 mg BID LESLYE Administration Hydralazine HCl 50 mg 12/25/20 09:00 12/25/20 10:30 Hydralazine 50 M g Tablet PO 50 mg BID LESLYE Administration Potassium Chloride /Sodium Chloride 20 meq in 1,000 m ls @ 75 mls/hr 12/24/20 20:45 12/25/20 10:56 Sodium Chlor 0.9 % + Kcl 20 Meq IV 75 mls/hr .[id number] LESLYE Administration Piperacillin Sod/T azobactam 50 mls @ 12.5 mls /hr 12/25/20 09:00 12/25/20 15:22 Sod 3.375 gm/ So dium Chloride IV Infused Q8H LESLYE Infusion Insulin Aspart 0 unit 12/25/20 12:00 12/25/20 13:20 Insulin Aspart 1 00 Unit/1 Ml SUBCUT Not Given [facility]ID[facility] Protocol Lisinopril 40 mg 12/25/20 09:00 12/25/20 10:29 Lisinopril 20 Mg Tablet PO 40 mg DAILY LESLYE Administration Metoprolol Succina te 25 mg 12/25/20 09:00 12/25/20 10:29 Metoprolol Succi max Er (24 Hr) 25 Mg Tablet PO 25 mg DAILY LESLYE Administration Morphine Sulfate 2 mg 12/24/20 20:33 12/25/20 03:27 Morphine 4 Mg/Ml Sdv 1 Ml IVP 2 mg Q4H PRN Administration SEVERE PAIN Tamsulosin HCl 0.4 mg 12/25/20 08:25 12/25/20 10:56 Tamsulosin 0.4 M g Capsule PO 0.4 mg DAILY LESLYE Administration PFSH Anesthesia PFSH: Medical History (Updated 12/25/20 @ 09:18 by Colette Bose MD) Coronary artery disease Diabetes mellitus, type II non insulin requiring Diverticulosis with several admissions for diverticulitis Hyperlipidemia Hypertension Surgical History (Updated 12/25/20 @ 14:09 by Petar García MD) History of coronary artery stent placement History of splenectomy Family History (Updated 12/25/20 @ 09:19 by Colette Bose MD) Sister Kidney stones Social History Smoking and tobacco status: never smoked Alcohol intake: never Substance/Drug Use: never Data Anesthesia CBC & Chem 7: 12/25/20 12:13 12/25/20 05:16 Other Labs: Laboratory Results - last 48 hr 12/25/20 12/25/20 12/25/20 05:16 05:16 05:16 WBC 22.3 H RBC 4.93 Hgb 14.4 Hct 44.8 MCV 90.9 MCH 29.2 MCHC 32.1 RDW 15.6 H Plt Count 209 MPV 12.9 H Neut % (Auto) 72.6 Lymph % (Auto) 13.7 Jackson % (Auto) 12.7 Eos % (Auto) 0.3 Baso % (Auto) 0.3 Neut # (Auto) 16.20 H Lymph # (Auto) 3.1 Jackson # (Auto) 2.8 H Eos # (Auto) 0.1 Baso # (Auto) 0.1 Nucleated RBC % (auto) 0 Total Counted Atypical Lymphs % Absolute Neutrophils Segmented Neutrophils Abs Segm Neuts (Man) Band Neutrophils Abs Band Neuts (Man) Absolute Lymphocytes Lymphocytes (Manual) Monocytes (Manual) Absolute Monocytes Eosinophils (Manual) Absolute Eosinophils Basophils (Manual) Absolute Basophils Nucleated RBCs # 0.0 Platelet Estimate Poikilocytosis ESR 10 Sodium 140 Potassium 3.9 Chloride 104 Carbon Dioxide 25 Anion Gap 14.9 BUN 14 Creatinine 1.3 H GFR Calculation 55.9 L Glucose 184 H POC Glucose Calculated Osmolality 295 Calcium 8.1 L Total Bilirubin 0.6 AST 21 ALT 22 Alkaline Phosphatase 71 C-Reactive Protein Total Protein 6.4 L Albumin 3.6 Globulin 2.8 Procalcitonin 12/25/20 12/25/20 12/25/20 05:16 11:46 12:13 WBC 25.1 H RBC 5.10 Hgb 14.9 Hct 45.8 MCV 89.8 MCH 29.2 MCHC 32.5 RDW 15.4 H Plt Count 216 MPV 13.0 H Neut % (Auto) Lymph % (Auto) Jackson % (Auto) Eos % (Auto) Baso % (Auto) Neut # (Auto) Lymph # (Auto) Jackson # (Auto) Eos # (Auto) Baso # (Auto) Nucleated RBC % (auto) Total Counted 100 Atypical Lymphs % 9.0 H Absolute Neutrophils 19.3 H Segmented Neutrophils 77 Abs Segm Neuts (Man) 19.3 H Band Neutrophils 0.0 Abs Band Neuts (Man) 0.0 Absolute Lymphocytes 4.3 H Lymphocytes (Manual) 8 Monocytes (Manual) 4.0 Absolute Monocytes 1.0 H Eosinophils (Manual) 2 Absolute Eosinophils 0.5 Basophils (Manual) 0.0 Absolute Basophils 0.0 Nucleated RBCs # Platelet Estimate Normal Poikilocytosis Trace ESR Sodium Potassium Chloride Carbon Dioxide Anion Gap BUN Creatinine GFR Calculation Glucose POC Glucose 145 H Calculated Osmolality Calcium Total Bilirubin AST ALT Alkaline Phosphatase C-Reactive Protein 25.8 H Total Protein Albumin Globulin Procalcitonin 0.21 Micro: Microbiology 12/25/20 12:19 Blood Culture - Preliminary Blood SPECIMEN COLLECTED 12/25/20 12:13 Blood Culture - Preliminary Blood SPECIMEN COLLECTED Cardiac Studies: No Data to Display
--- NOTE | 2020-12-25 16:52 | P.OP_ITS ---
Operative Report Date of procedure: December 25, 2020 Pre-op Diagnosis: LEFT distal ureteral stone x2 with obstruction Post-op Diagnosis: LEFT distal ureteral stone x2 with obstruction Procedure Done: 1. Cystoscopy left retrograde ureteropyelogram 2. Left ureteroscopy laser lithotripsy, stent (7 Surinamese by 26 cm double-pigtail without string) Implants: Left ureteral stent Specimens removed/disposition: Stones Pathology: Stone fragments Surgeon: Andrez Anesthesia: General Estimated blood loss: Less than 10 cc Urine output: Not measured Complications: None Findings: Multiple stones in the left distal ureter. 2 small ones were removed with grasping forceps. The larger stone could not be easily secured in the grasping forceps and was then fragmented with a laser into small pieces that were removed with a parachute basket. Stent left indwelling. No string. Condition: stable Disposition: PACU Brief History: Mr. Funez is a 60-year-old white male who I evaluated for the first time last night after direct admission from [facility] for highly symptomatic obstructing left distal ureteral stones diagnosed on CT scan. He had no evidence of urinary tract infection but was found to have marked increase in leukocytosis which was a significant red flag for him given the fact that he has a history of a splenectomy. No other infectious etiologies could be identified. He was placed on antibiotics and direct admitted. This morning is white count was roughly the same at 22,000 and increased to 25,000 this afternoon. He developed a low-grade temperature of 99.3. From a purely stone perspective it was felt that he had a good chance to pass the stones but he was still having significant ongoing pain and the concern regarding his leukocytosis tilted and more in the direction of proceeding with treatment specifically placement of left ureteral stent but if all is going well hemodynamically etc. then considering attempt at definitive treatment of the stones. Procedure: After urgent evaluation examination and obtaining of informed consent he was taken to the operating suite on 12/25/2020 where general anesthesia was administered without difficulty after appropriate timeout was performed, SCDs confirmed to be functioning, preoperative antibiotics administered, beta-reji protocol confirmed. Prepped and draped in usual sterile fashion in dorsolithotomy position paying careful attention to avoiding pressure points. 21 [place]amese cystoscope with 30 degree lens was introduced urethra meatus and advanced to the bladder under videoscopy. The bladder was systematically examined. No gross abnormality was identified within the bladder. Left ureteral orifice appeared edematous. An 8 [place] cone-tip catheter was intubated to the left ureteral orifice for a left retrograde ureteropyelogram which demonstrated stone in the expected position in the distal ureter and proximal dilation to that. The second stone seen on CT scan an inch or so above the distal stone was not readily identified. A flexible tip guidewire was then advanced up the left ureter bypassing the stones curling in the area of the kidney. He was confirmed to be doing well from a hemodynamic status and that the distal ureter was dilated with a 15 [place]e 4 cm balloon in the wire was secured to the drapes as a safety wire. A 7 [place]amese offset semirigid ureteroscope was advanced up the left ureter next to the guidewire with a stone was encountered in its expected position and fragmented with a 365 ?m thulium superpulse laser fiber and the fragments removed. Several small stones were identified in addition to the larger stone which was fragmented. These were removed with grasping forceps prior to the laser lithotripsy. [place] parachute basket was then utilized to remove all the small fragments without difficulty. Several passes were required. On final inspection no fragments remained. The ureter had typical trauma from dilation but otherwise was okay. It was decided to leave a stent and to make sure that he was adequately drained especially given the concern relating to his leukocytosis. The cystoscope was then backloaded over the guidewire and then a 7 [place] by 26 cm double-pigtail stent was advanced over the guidewire through the cystoscope into appropriate position as confirmed via fluoroscopy and cystoscopy. The fragments had migrated into the bladder were then flushed through the scope and the procedure was completed. Tolerated procedure well without complications and was awakened in the operating room and returned to the cart room in stable condition.
--- NOTE | 2020-12-25 17:00 | PC.NURSE ---
AT APPROX 1645 PT TRANSPORTED TO OR BY [facility]
[2020-12-25] MEDS: sodium chloride 0.9% 1,000 ML 30 ML IV (17:30)
[2020-12-25] MEDS: iohexol 300 mg/mL 50 mL Btl (OR ONLY) 15 ML XX (18:19)
--- NOTE | 2020-12-25 18:54 | SC_ITS ---
NOTE: Report was unsigned for reason: Ordering provider was edited. Original Signature date and time was: 12/26/20 @ 818 WS: [id number] C-arm fluoroscopy for stent placement, 12/25/2020 Clinical Data: LT. STONE Comparison: KUB, 12/25/2020 Findings: There is a ureteral stent which is within the left renal pelvis. [facility] SC/C-arm [place] for Urology Impression: Left ureteral stent placement.
--- NOTE | 2020-12-25 19:05 | ANE.PACU2 ---
Inpatient post-anesthesia follow up: Airway intact: Yes Vital signs: Temperature 97.5 F Pulse Rate 67 Respiratory Rate 16 Blood Pressure 152/91 Pulse Oximetry 96 Oxygen Delivery Me thod Nasal Cannula Oxygen Flow Rate 2 Fraction of Inspir ed Oxygen Hydration adequate: Yes Nausea and vomiting: No Pain level: 3 Mental status: Baseline
[2020-12-25 21:11] LABS: Glucose Point of Care 159 mg/dL (70-110)
[2020-12-25] MEDS: amlodipine 10 mg Tablet PO (21:37)
[2020-12-25] MEDS: atorvastatin 40 mg Tablet 20 MG PO (21:37)
[2020-12-26] VITALS (8 sets, daily range): BP systolic 117–143; BP diastolic 64–79; PULSE 51–76; RESP 16–18; TEMP 36.4–36.8; O2SAT 93–99
[2020-12-26 02:46] LABS: Basophils # 0.1 10^3/uL (0.0-0.1); Basophils % 0.4 %; Eosinophils # 0.2 10^3/uL (0.0-0.8); Eosinophils % 1.3 %; Hematocrit 41.1 % (42.0-52.0); Hemoglobin 12.9 g/dL (11.7-16.6); Lymphocytes # 4.8 10^3/uL (0.8-4.8); Lymphocytes % 27.1 %; Mean Corpuscular HGB Conc 31.4 g/dL (30.0-36.0); Mean Corpuscular Hemoglobin 28.6 pg (28.0-34.0); Mean Corpuscular Volume 91.1 fL (80-94); Mean Platelet Volume 13.1 fL (7.4-10.4); Monocytes # 2.1 10^3/uL (0.2-0.9); Monocytes % 11.6 %; Neutrophils # 10.49 10^3/uL (1.8-7.7); Neutrophils % 59.3 %; Nucleated Red Blood Cells % 0 %; Platelet Count 180 10^3/cmm (130-400); Red Blood Count 4.51 10^6/uL (4.1-5.3); Red Cell Distribution Width 15.7 % (12.1-15.1); White Blood Count 17.7 10^3/uL (4.0-10.0)
[2020-12-26 03:07] LABS: Alanine Aminotransferase 16 U/L (0-41); Albumin Level 3.2 g/dL (3.5-5.2); Alkaline Phosphatase 60 IU/L (40-130); Anion Gap 10.8 (5-19); Aspartate Amino Transferase 14 U/L (0-40); Blood Urea Nitrogen 16 mg/dL (8-23); C Reactive Protein 98.1 mg/L (0.0-4.9); Calcium 7.8 mg/dL (8.5-10.5); Carbon Dioxide 26 mmol/L (22-29); Chloride 108 mmol/L (98-107); Globulin 2.7 g/dL (1.3-4.6); Glomerular Filtration Rate 67.8 mL/min (90-130); Glucose 122 mg/dL (65-115); Osmolality Calculated 294 mOsm/kg (285-295); Phosphorus 3.8 mg/dL (2.5-4.5); Potassium 3.8 mmol/L (3.5-5.1); Sodium 141 mmol/L (136-145); Total Bilirubin 0.7 mg/dL (0.15-1.2); Total Protein 5.9 g/dL (6.6-8.7)
[2020-12-26 03:24] LABS: Procalcitonin 0.12 ng/mL (0-0.5)
[2020-12-26] MEDS: piperacillin-tazobactam 3.375 GM in sodium chloride 0.9% (plus) 50 ML IV ×2 (04:09→13:45)
[2020-12-26 06:30] LABS: Glucose Point of Care 126 mg/dL (70-110)
[2020-12-26] MEDS: tamsulosin 0.4 mg Capsule PO (09:38)
[2020-12-26] MEDS: metoprolol succinate ER (24 HR) 25 mg Tablet PO (09:38)
[2020-12-26] MEDS: docusate sodium 100 mg Capsule PO ×2 (09:38→18:08)
[2020-12-26] MEDS: lisinopril 20 mg Tablet 40 MG PO (09:38)
[2020-12-26] MEDS: clopidogrel 75 mg Tablet PO (09:38)
[2020-12-26] MEDS: aspirin 81 mg EC Tablet PO (09:39)
[2020-12-26] MEDS: famotidine 20 mg Tablet PO ×2 (09:39→18:08)
[2020-12-26] MEDS: hyDRALAzine 50 mg Tablet PO ×2 (09:39→18:08)
[2020-12-26 11:00] LABS: Glucose Point of Care 127 mg/dL (70-110)
--- NOTE | 2020-12-26 12:51 | PM.PN ---
Subjective Subjective: Interval history: Urology follow-up: Postoperative day #1 cystoscopy, left retrograde ureteroscopy laser stent for obstructing left distal ureteral stones in the face of leukocytosis. Procedure went well with clearance of all the distal ureteral stones. Having typical stent symptoms. No fever or chills. White count this morning decreased to 17,000. He thinks that he is feeling better most in the realm of decreased pain. Still has a stone in his left kidney but as of now it is not causing any problems. We discussed options for treating the stone including both ESWL or endoscopy at some point. He is on chronic Plavix and that would have to be stopped prior to ESWL. He apparently has a tentative trip planned late next week to go to [place] with family. Reviewed leaving the stent in or taking it out before the trip. Since there is no residual stone in the ureter I think it safe to take it out as long as he has about a week of healing postop. He also is considering canceling the trip. If he wants to move faster on treatment of the residual kidney stone that could be something that could be done as long as his Plavix can be stopped with ESWL or endoscopy if not. He will think about all that. From a urologic perspective I think he can be discharged anytime. The question still remains regarding his leukocytosis and antibiotic regimen inpatient/outpatient. We will wait for the hospitalist perspective on that. Vitals/I&O/Wt Last Vital Signs Temp 97.5 F L 12/26/20 11:19 Pulse 64 12/26/20 11:19 Resp 16 12/26/20 11:19 BP 137/78 12/26/20 11:19 Pulse Ox 93 12/26/20 11:19 12/25/20 12/26/20 12/26/20 22:59 06:59 14:59 Intake Total 2290 / 3410 50 / 3460 50 / 50 Output Total 500 / 900 625 / 1525 650 / 650 Balance 1790 / 2510 -575 / 1935 -600 / -600 Weight last 48 hrs Weight 210 lb Physical Exam Const: COMMON NORMALS: no acute distress, alert and well nourished GENERAL APPEARANCE: well kempt and well developed ORIENTATION/CONSCIOUSNESS: not confused HENMT: COMMON NORMALS: normocephalic and atraumatic HEAD & SCALP: normocephalic and atraumatic Eye: COMMON NORMALS: conjunctivae normal and no scleral icterus CONJUNCTIVA: Yes conjunctivae normal Neck/C-Spine: COMMON NORMALS: full ROM GENERAL: Yes normal visual inspection Resp: COMMON NORMALS: normal respiratory effort EFFORT & INSPECTION: No labored and No Actively coughing Neuro: COMMON NORMALS: no focal motor deficits SENSORIUM/ORIENTATION: Yes alert Psych: COMMON NORMALS: mental status grossly normal APPEARANCE: Yes grossly normal and Yes well kempt ATTITUDE: Yes calm and Yes engaged Skin: COMMON NORMALS: no rashes or lesions noted and no jaundice GENERAL SKIN EXAM: no rashes or lesions noted Data : 12/26/20 02:08 12/26/20 02:08 Micro: Microbiology 12/25/20 12:19 Blood Culture - Preliminary Blood NEGATIVE TO DATE 12/25/20 12:13 Blood Culture - Preliminary Blood NEGATIVE TO DATE A&P Assessment and plan (1) Left ureteral calculus: Status post endoscopic treatment with laser lithotripsy and basketing. Stent left indwelling for healing postop Status: Resolved (2) Urolithiasis: Residual untreated left renal calculus. He is thinking about having it treated but has not expressed to definitive earlier or later approach yet. Reviewed and consider the above information for this visit different options and requirements. Status: Acute Qualifiers: Urinary calculus location: ureter Qualified Code(s): N20.1 - Calculus of ureter (3) Leukocytosis: Decreased from 25,000-17,000 today. No systemic symptoms of infection currently. Status: Acute Qualifiers: Leukocytosis type: unspecified Qualified Code(s): D72.829 - Elevated white blood cell count, unspecified (4) History of splenectomy: Covering with antibiotics due to history of splenectomy and patient with a elevated white count Status: Acute Attestations Medical Necessity Statement*: See attending Coding Level of Care Code Acute Investor Relations Specialist for tuyet Bran Diagnoses Left ureteral calculus N20.1 Urolithiasis N20.1 Urinary calculus location: ureter Leukocytosis D72.829 Leukocytosis type: unspecified History of splenectomy Z90.81
[2020-12-26] MEDS: sodium chlor 0.9% + KCl 20 mEq 20 MEQ/1,000 ML BAG 75 MEQ IV (13:48)
[2020-12-26 17:15] LABS: Glucose Point of Care 202 mg/dL (70-110)
--- NOTE | 2020-12-26 17:45 | PM.PN ---
Subjective Subjective: Interval history: 60 year old male with past medical history of coronary artery disease s/p stent, diabetes mellitus, recurrent diverticulitis, hypertension and hyperlipidemia who presented to ER with left flank pain. This was associated with hematuria. Upon arrival to ER his initial laboratory work up showed a WBC of 22.3, hemoglobin of 14.4, hematocrit of 44.8, and a platelet count of 209. Sodium 140, potassium of 3.9, chloride of 104, bicarb of 25, Bun of 14, and a creatinine of 1.3 with a glucose of 184. Imaging studies showed a a 1.4 cm calcific density projecting over the left mid kidney, corresponding to nonobstructing stone. Report was not avaiable to me however patient was noted to have UTI and pyelonephritis on CT prior to arrival. He was starte on zosyn 3.375g IV q8hr. Urine culture from outside facility were not avaiable. Blood culture x2 remained negative. Repeat UCx was sent on 12/26 which was pending.On 12/25 patient was taken for a cystoscopy with left retrograde ureeropyelogram, left ureteroscopy laser lithotripsy and stent placement. Post procedure patient continued to complain of dysuria and mild blood tinged urine. No recurrence of fever. Leukocytosis improved to 17. Antibiotic was changed to Levofloxacin 750 mg PO daily. Vitals/I&O/Wt Last Vital Signs Temp 97.5 F L 12/26/20 16:34 Pulse 69 12/26/20 16:34 Resp 16 12/26/20 16:34 BP 138/79 12/26/20 16:34 Pulse Ox 93 12/26/20 16:34 12/26/20 12/26/20 12/26/20 06:59 14:59 22:59 Intake Total 50 / 3460 390 / 390 Output Total 625 / 1525 650 / 650 400 / 1050 Balance -575 / 1935 -260 / -260 -400 / -660 Weight last 48 hrs Weight 95.254 kg Physical Exam Const: COMMON NORMALS: no acute distress and patient oriented x3 Resp: COMMON NORMALS: normal respiratory effort, No retractions, No use of accessory muscles and clear to auscultation bilaterally AUSCULTATION: clear to auscultation bilaterally Cardio: COMMON NORMALS: regular rate, regular rhythm, S1 normal heart sound present and S2 normal heart sound present RATE: regular rate RHYTHM: regular rhythm HEART SOUNDS: S1 normal heart sound present and S2 normal heart sound present GI: COMMON NORMALS: Normal to inspection, nondistended, normoactive bowel sounds present and Soft to palpation INSPECTION: Yes normal to inspection PALPATION: Yes Soft to palpation and Yes Tenderness to palpation present (GI) Back/Pelvis: OTHER: Left CVA tenderness Extremity: COMMON NORMALS: no pedal edema Neuro: COMMON NORMALS: patient oriented x3 Psych: COMMON NORMALS: mental status grossly normal Data : 12/26/20 02:08 12/26/20 02:08 Micro: Microbiology 12/25/20 12:19 Blood Culture - Preliminary Blood NEGATIVE TO DATE 12/25/20 12:13 Blood Culture - Preliminary Blood NEGATIVE TO DATE A&P Assessment and plan (1) Urolithiasis: With hematuria, left flank pain, left groin pain Status: Acute Qualifiers: Urinary calculus location: ureter Qualified Code(s): N20.1 - Calculus of ureter (2) Leukocytosis: Await culture change abx to levaquin Cbc.cmp in am Status: Acute Qualifiers: Leukocytosis type: unspecified Qualified Code(s): D72.829 - Elevated white blood cell count, unspecified (3) Diabetes: Chronically on Metformin Sliding scale insulin Status: Chronic Qualifiers: Diabetes mellitus type: type 2 Diabetes mellitus custodial insulin use: without long term care administrator use Diabetes mellitus complication status: with hyperglycemia Qualified Code(s): E11.65 - Type 2 diabetes mellitus with hyperglycemia (4) Hypertension: Chronically on lisinopril, amlodipine and hydralazine Status: Chronic Qualifiers: Hypertension type: essential hypertension Qualified Code(s): I10 - Essential (primary) hypertension (5) Coronary artery disease: Chronically on aspirin, Plavix, atorvastatin and metoprolol Status: Chronic Qualifiers: Coronary Disease-Associated Artery/Lesion type: [place] artery [place] vs. transplanted heart: [place] heart Associated angina: without angina Qualified Code(s): I25.10 - Atherosclerotic heart disease of [place] coronary artery without angina pectoris (6) History of splenectomy: Status: Acute Additional A&P Information Plan to d/c on abx. Likely additional 1-2 days if leukocytosis improves. Attestations Medical Necessity Statement*: Will continue hospitalization for management of dysuria, and final abx plan Time Spent in Patient Care: Greater than 35 minutes (>than 50% of time spent in counselling and/or direct pt care on unit). Coding Level of Care Code Acute Dough Raiser for Chg Fwd Diagnoses Urolithiasis N20.1 Urinary calculus location: ureter Leukocytosis D72.829 Leukocytosis type: unspecified Diabetes E11.65 Diabetes mellitus type: type 2 Diabetes mellitus long term care administrator insulin use: without custodial use Diabetes mellitus complication status: with hyperglycemia Hypertension I10 Hypertension type: essential hypertension Coronary artery disease I25.10 Coronary Disease-Associated Artery/Lesion type: [place] artery [place] vs. transplanted heart: [place] heart Associated angina: without angina History of splenectomy Z90.81
[2020-12-26 21:45] LABS: Glucose Point of Care 116 mg/dL (70-110)
[2020-12-26] MEDS: amlodipine 10 mg Tablet PO (22:26)
[2020-12-26] MEDS: atorvastatin 40 mg Tablet 20 MG PO (22:26)
[2020-12-27] MEDS: sennosides 8.6 mg Tablet 17.2 MG PO (00:16)
[2020-12-27 01:25] VITALS: BP 162/88; PULSE 76; RESP 16; TEMP 36.4; O2SAT 98
[2020-12-27 02:48] LABS: Basophils # 0.1 10^3/uL (0.0-0.1); Basophils % 0.4 %; Eosinophils # 0.7 10^3/uL (0.0-0.8); Eosinophils % 4.1 %; Hematocrit 44.9 % (42.0-52.0); Hemoglobin 14.5 g/dL (11.7-16.6); Lymphocytes # 5.4 10^3/uL (0.8-4.8); Lymphocytes % 31.7 %; Mean Corpuscular HGB Conc 32.3 g/dL (30.0-36.0); Mean Corpuscular Hemoglobin 29.4 pg (28.0-34.0); Mean Corpuscular Volume 91.1 fL (80-94); Mean Platelet Volume 13.1 fL (7.4-10.4); Monocytes # 2.1 10^3/uL (0.2-0.9); Monocytes % 12.2 %; Neutrophils # 8.66 10^3/uL (1.8-7.7); Neutrophils % 51.3 %; Nucleated Red Blood Cells % 0 %; Platelet Count 199 10^3/cmm (130-400); Red Blood Count 4.93 10^6/uL (4.1-5.3); Red Cell Distribution Width 15.3 % (12.1-15.1); White Blood Count 16.9 10^3/uL (4.0-10.0)
[2020-12-27 03:11] LABS: Alanine Aminotransferase 23 U/L (0-41); Albumin Level 3.7 g/dL (3.5-5.2); Alkaline Phosphatase 76 IU/L (40-130); Anion Gap 13.6 (5-19); Aspartate Amino Transferase 18 U/L (0-40); Blood Urea Nitrogen 14 mg/dL (8-23); Calcium 8.8 mg/dL (8.5-10.5); Carbon Dioxide 27 mmol/L (22-29); Chloride 108 mmol/L (98-107); Globulin 3.1 g/dL (1.3-4.6); Glomerular Filtration Rate 85.5 mL/min (90-130); Glucose 119 mg/dL (65-115); Magnesium 1.8 mg/dL (1.7-2.3); Osmolality Calculated 302 mOsm/kg (285-295); Phosphorus 2.2 mg/dL (2.5-4.5); Potassium 3.6 mmol/L (3.5-5.1); Sodium 145 mmol/L (136-145); Total Bilirubin 0.5 mg/dL (0.15-1.2); Total Protein 6.8 g/dL (6.6-8.7)
[2020-12-27 03:21] LABS: Procalcitonin 0.08 ng/mL (0-0.5)
[2020-12-27] MEDS: sodium chlor 0.9% + KCl 20 mEq 20 MEQ/1,000 ML BAG 75 MEQ IV (04:59)
[2020-12-27] MEDS: levoFLOXacin 750 mg Tablet PO (05:01)
[2020-12-27 05:09] VITALS: BP 143/87; PULSE 69; RESP 16; TEMP 36.2; O2SAT 96
[2020-12-27 06:39] LABS: Glucose Point of Care 119 mg/dL (70-110)
--- NOTE | 2020-12-27 06:59 | PM.PN ---
Subjective Subjective: Interval history: Urology follow-up: Postoperative day #2 status post left ureteroscopy, laser lithotripsy and stent. Continues to feel better. Still with stent symptoms but on the lesser side of normal. No fever chills or progressive infection symptoms. White count has decreased slightly to 16.9 today. Creatinine continues to remain stable at <1.0. No other significant complaints. Reviewed in detail the expectations regarding to stent symptoms. We also discussed options for treating the stone up in the kidney. Since yesterday when we talked he has decided in concert with his family to proceed with treatment of the left renal calculus and hold off on travel. For that reason we will leave the stent in until ESWL on 01/07/2021. He will need to continue antibiotics through that time. I reviewed with him that he needs to stop his aspirin and his Plavix after 12/31/2020. 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 All of the above was discussed in detail and he expressed good understanding. I will see him next week with a KUB for final planning related to ESWL. Vitals/I&O/Wt Last Vital Signs Temp 97.2 F L 12/27/20 05:09 Pulse 69 12/27/20 05:09 Resp 16 12/27/20 05:09 BP 143/87 12/27/20 05:09 Pulse Ox 96 12/27/20 05:09 12/26/20 12/26/20 12/27/20 14:59 22:59 06:59 Intake Total 390 / 390 50 / 440 1800 / 2240 Output Total 650 / 650 1825 / 2475 600 / 3075 Balance -260 / -260 -1775 / -2035 1200 / -835 Physical Exam Const: COMMON NORMALS: no acute distress, alert and well nourished GENERAL APPEARANCE: well kempt and well developed ORIENTATION/CONSCIOUSNESS: not confused Neck/C-Spine: COMMON NORMALS: full ROM Resp: COMMON NORMALS: normal respiratory effort EFFORT & INSPECTION: No labored and No Actively coughing Neuro: COMMON NORMALS: no focal motor deficits SENSORIUM/ORIENTATION: Yes alert Psych: COMMON NORMALS: mental status grossly normal APPEARANCE: Yes grossly normal and Yes well kempt ATTITUDE: Yes calm and Yes engaged Skin: COMMON NORMALS: no rashes or lesions noted and no jaundice GENERAL SKIN EXAM: no rashes or lesions noted Data : 12/27/20 02:05 12/27/20 02:05 Micro: Microbiology 12/25/20 12:19 Blood Culture - Preliminary Blood NEGATIVE TO DATE 12/25/20 12:13 Blood Culture - Preliminary Blood NEGATIVE TO DATE A&P Assessment and plan (1) Left ureteral calculus: Status post endoscopic treatment with laser lithotripsy fragment removal and stenting. Status: Resolved (2) Leukocytosis: Continues to improve. Will be discharged on antibiotics and these need to be maintained through treatment of his left kidney stone. Status: Acute Qualifiers: Leukocytosis type: unspecified Qualified Code(s): D72.829 - Elevated white blood cell count, unspecified (3) Kidney stone: LEFT residual calculus. He wants to try to become stone free. We will plan on ESWL on 01/07/2021. Maintain stent through that time and on follow-up. Status: Acute (4) Hypertension: Status: Chronic Qualifiers: Hypertension type: essential hypertension Qualified Code(s): I10 - Essential (primary) hypertension (5) Coronary artery disease: Status: Chronic Qualifiers: Coronary Disease-Associated Artery/Lesion type: [place] artery [place] vs. transplanted heart: [place] heart Associated angina: without angina Qualified Code(s): I25.10 - Atherosclerotic heart disease of [place] coronary artery without angina pectoris (6) History of splenectomy: Status: Chronic Attestations Medical Necessity Statement*: See attending Coding Level of Care Code Acute Health Advocate for [facility] Fwd Diagnoses Left ureteral calculus N20.1 Leukocytosis D72.829 Leukocytosis type: unspecified Kidney stone N20.0 Hypertension I10 Hypertension type: essential hypertension Coronary artery disease I25.10 Coronary Disease-Associated Artery/Lesion type: [place] artery [place] vs. transplanted heart: [place] heart Associated angina: without angina History of splenectomy Z90.81
[2020-12-27 08:12] VITALS: BP 131/85; PULSE 74; RESP 18; TEMP 37.3; O2SAT 96
[2020-12-27] MEDS: clopidogrel 75 mg Tablet PO (08:54)
[2020-12-27] MEDS: lisinopril 20 mg Tablet 40 MG PO (08:54)
[2020-12-27] MEDS: metoprolol succinate ER (24 HR) 25 mg Tablet PO (08:54)
[2020-12-27] MEDS: tamsulosin 0.4 mg Capsule PO (08:54)
[2020-12-27] MEDS: famotidine 20 mg Tablet PO (08:55)
[2020-12-27] MEDS: docusate sodium 100 mg Capsule PO (08:55)
[2020-12-27] MEDS: aspirin 81 mg EC Tablet PO (08:55)
[2020-12-27] MEDS: hyDRALAzine 50 mg Tablet PO (08:55)
[2020-12-27 10:21] VITALS: BP 131/85; PULSE 74; RESP 18; TEMP 37.3; O2SAT 96
--- NOTE | 2020-12-27 10:37 | PC.NURSE ---
Discharge note Patient's IV was removed with no complications. Tip of catheter intact. Patient educated on upcoming appointments and signs and symptoms to look for after discharge that are to be expected and what is not post op stent placement. Discharge meds discussed and sent to [facility] pharmacy. Patient stated understanding. picked up patient.
--- NOTE | 2020-12-27 20:32 | P.DS_ITS ---
Discharge Providers Date of Admission: 12/24/20 18:30 Date of Discharge: December 27, 2020 Attending Provider at Admission: Petar García MD Attending Provider at Discharge: Mercedes Elam Diagnoses at Discharge Discharge Diagnosis (1) Left ureteral calculus: Status: Resolved (2) Leukocytosis: Status: Acute Qualifiers: Leukocytosis type: unspecified Qualified Code(s): D72.829 - Elevated white blood cell count, unspecified (3) Kidney stone: Status: Acute Permanent problem details: Untreated left (4) Hypertension: Status: Chronic Qualifiers: Hypertension type: essential hypertension Qualified Code(s): I10 - Essential (primary) hypertension (5) Coronary artery disease: Status: Chronic Qualifiers: Coronary Disease-Associated Artery/Lesion type: [place] artery [place] vs. transplanted heart: [place] heart Associated angina: without angina Qualified Code(s): I25.10 - Atherosclerotic heart disease of [place] coronary artery without angina pectoris (6) History of splenectomy: Status: Deleted Reason for Visit Reason for Visit: L kidney stone, leukocytosis Hospital Course Hospital Course 60 year old male with past medical history of coronary artery disease s/p stent, diabetes mellitus, recurrent diverticulitis, hypertension and hyperlipidemia who presented to ER with left flank pain. This was associated with hematuria. Upon arrival to ER his initial laboratory work up showed a WBC of 22.3, hemoglobin of 14.4, hematocrit of 44.8, and a platelet count of 209. Sodium 140, potassium of 3.9, chloride of 104, bicarb of 25, Bun of 14, and a creatinine of 1.3 with a glucose of 184. Imaging studies showed a a 1.4 cm calcific density projecting over the left mid kidney, corresponding to nonobstructing stone. Report was not avaiable to me however patient was noted to have UTI and pyelonephritis on CT prior to arrival. He was starte on zosyn 3.375g IV q8hr. Urine culture from outside facility were not avaiable. Blood culture x2 remained negative. Repeat UCx was sent on 12/26 which was pending.On 12/25 patient was taken for a cystoscopy with left retrograde ureeropyelogram, left ureteroscopy laser lithotripsy and stent placement. Post procedure patient continued to complain of dysuria and mild blood tinged urine. No recurrence of fever. Leukocytosis improved to 17. Antibiotic was changed to Levofloxacin 750 mg PO daily. Discharged in stable condition. Physical Exam Const: COMMON NORMALS: no acute distress and patient oriented x3 Resp: COMMON NORMALS: normal respiratory effort, No retractions, No use of accessory muscles and clear to auscultation bilaterally AUSCULTATION: clear to auscultation bilaterally Cardio: COMMON NORMALS: regular rate, regular rhythm, S1 normal heart sound present and S2 normal heart sound present RATE: regular rate RHYTHM: regular rhythm HEART SOUNDS: S1 normal heart sound present and S2 normal heart sound present GI: COMMON NORMALS: Normal to inspection, nondistended, normoactive bowel sounds present and Soft to palpation INSPECTION: Yes normal to inspection PALPATION: Yes Soft to palpation and Yes Tenderness to palpation present (GI) Back/Pelvis: OTHER: Left CVA tenderness Extremity: COMMON NORMALS: no pedal edema Neuro: COMMON NORMALS: patient oriented x3 Psych: COMMON NORMALS: mental status grossly normal Discharge Data Data Completed and Pending: Completed Studies During Hospitalization Category Date Time Status XR KUB [id number] Rout ine Exams 12/25/20 06:00 Completed XR chest 1V pauline ble [id number] Routine Exams 12/25/20 07:57 [place] [id number] Routin e Ultrasound 12/25/20 11:22 Completed Pending at discharge Category Date Time Status Blood Culture Sta t Lab 12/25/20 12:19 Results Pathology: Surgic al [PTH] Routine Pth 12/25/20 18:45 Received Labs from last 24 hours 12/25/20 18:35 Stone Source Left ureteral sto ne Stone Weight 0.002 Vitals: Last Vital Signs Temp 99.1 F 12/27/20 10:21 Pulse 74 12/27/20 10:21 Resp 18 12/27/20 10:21 BP 131/85 12/27/20 10:21 Pulse Ox 96 12/27/20 10:21 Discharge Plan Discharge Patient Disposition: Home Condition: Stable Prescriptions: New levofloxacin 750 mg Tablet 750 mg PO DAILY@0600 4 Days Qty: 4 RF: 0 tamsulosin 0.4 mg Capsule 0.4 mg PO DAILY Qty: 30 RF: 0 Continued amlodipine [Norvasc] 10 mg tablet 10 mg PO BEDTIME RF: 0 clopidogrel [Plavix] 75 mg tablet 75 mg PO DAILY RF: 0 hydralazine 50 mg tablet 50 mg PO BID RF: 0 metoprolol succinate 25 mg tablet extended release 24 hr 25 mg PO DAILY RF: 0 lisinopril 40 mg tablet 40 mg PO DAILY RF: 0 metformin 1,000 mg tablet 1,000 mg PO BID RF: 0 atorvastatin 20 mg tablet 20 mg PO BEDTIME RF: 0 aspirin 81 mg Tablet,Chewable 81 mg PO DAILY RF: 0 Discharge Orders: Discharge Order (Routine); Ordered 12/27/20 Ordered By: Sunny Maguire Referrals: Sunny Maguire MD [Physician] - 01/03/21 7:15 am ( PLEASE COME TO DR MAGUIRE OFFICE FOR A COVID TEST ON JANUARY 02 ,CHECK IN AT [facility] ON JANUARY 03 AT 7:[address] MAGUIRE OFFICE FOR APPOINTMENT) Discharge Diet: Usual diet Discharge Activity: Increase activity as tolerated Patient Instructions: Levofloxacin (By mouth), Tamsulosin (By mouth), Coronary Artery Disease (DC), Kidney Stones (DC), Hypertension (DC), Opioid Safety Activity Restrictions/Additional Instructions: UROLOGY instructions: 1. We will have you follow-up mid next week with a KUB first (x-ray) and then make final plans for treatment of the left kidney stone on 01/07/2021. 2. Please hold your Plavix and aspirin after 12/31/2020. 3. You can expect to have more stent symptoms of more active you become. These will include left flank and left-sided pain, urgency, frequency, blood in the urine. You may actually also have some pain in the left flank with voiding. These are all normal and to be expected. They do not represent an unusual or serious event. 4. Please call my office if you have any concerns at [phone] Discharge Attestations Time Spent in Discharge Care*: greater than 30 min Specific Discharge Activities: educating patient, educating and/or supporting family/caregiver, discussing with catalytic case operator/social workers/dc planners, documenting/other paperwork and evaluating patient/reviewing data Status at Discharge: Cognitive status at discharge: cognitively intact , Behavioral status at discharge: cooperative , Functional status at discharge: independent ambulation Overall status at discharge: patient is back to [facility] (formerly [facility]) Quality Metrics Clinical Quality Measures During this hospital stay, did patient experience: None Coding Level of Care Code Acute Chg FW DC note Diagnoses Left ureteral calculus N20.1 Leukocytosis D72.829 Leukocytosis type: unspecified Kidney stone N20.0 Hypertension I10 Hypertension type: essential hypertension Coronary artery disease I25.10 Coronary Disease-Associated Artery/Lesion type: [place] artery [place] vs. transplanted heart: [place] heart Associated angina: without angina History of splenectomy Z90.81
[2020-12-29 00:57] LABS: Stone Source LEFT URETERAL STONE
== END 2020-12-27 10:50 | disposition home or self-care (01) | DRG 661 ==
PROVIDERS: Urology; Admitting Provider Family Medicine; Visit Provider Hospitalist
PROC: 0TJB8ZZ Inspection of Bladder, Via Natural or Artificial Opening Endoscopic (ICD-10-PCS; CPT 52000; principal; 2020-12-25 17:00)
PROC: 0T778DZ Dilation of Left Ureter with Intraluminal Device, Via Natural or Artificial Opening Endoscopic (ICD-10-PCS; CPT 74420; 2020-12-25 17:00)
PROC: 0TJ98ZZ Inspection of Ureter, Via Natural or Artificial Opening Endoscopic (ICD-10-PCS; CPT 52351; 2020-12-25 17:00)
PROC: 0T778DZ Dilation of Left Ureter with Intraluminal Device, Via Natural or Artificial Opening Endoscopic (ICD-10-PCS; 2020-12-25 17:00)
PROC: 0T778DZ Dilation of Left Ureter with Intraluminal Device, Via Natural or Artificial Opening Endoscopic (ICD-10-PCS; CPT 50605; 2020-12-25 17:00)
DX: N13.2 Hydronephrosis with renal and ureteral calculous obstruction (principal); I25.10 Atherosclerotic heart disease of native coronary artery without angina pectoris; Z95.5 Presence of coronary angioplasty implant and graft; E11.9 Type 2 diabetes mellitus without complications; K57.90 Diverticulosis of intestine, part unspecified, without perforation or abscess without bleeding; E78.5 Hyperlipidemia, unspecified; I10 Essential (primary) hypertension; Z90.81 Acquired absence of spleen; N12 Tubulo-interstitial nephritis, not specified as acute or chronic; N39.0 Urinary tract infection, site not specified; Z79.02 Long term (current) use of antithrombotics/antiplatelets; Z79.84 Long term (current) use of oral hypoglycemic drugs; Z79.82 Long term (current) use of aspirin
CPT/HCPCS: 36415; 36416; 71045; 74018; 76000; 80053; 80500; 82365; 82962; 83735; 84100; 84145; 85007; 85025; 85027; 85651; 86140; 87040; 87086; 88300; 93005; 93970; 96372; C2625; J0696; J1815; J2270; J2405; J2543; J2704; J3010; J3490; J7030

== ENCOUNTER → 2021-01-02 11:02 | Outpatient (BNVA) | payer BC, SELFPAY | PROVIDERS: PCP Urology; Visit Provider Urology | DX: N20.0 Calculus of kidney (principal) | CPT/HCPCS: 87635 ==

== ENCOUNTER 2021-01-03 07:25 | Outpatient (CLI) | payer BC, SELFPAY ==
--- NOTE | 2021-01-03 07:15 | XR_ITS ---
WS: [id number] KUB, AP view, 01/03/2021 Clinical Data: KIDNEY STONE Comparison: KUB, 12/25/2020. Findings: The left ureteral stents in good position. There is a 1.4 cm calcification overlying the left kidney. There is a small calcification adjacent to the distal loop of the stent. No abnormal intraabdominal masses are seen. There is no dilatated small bowel or evidence of obstruct ion. There is a dextroscoliosis of the lumbar spine. There is a large amount of fecal material in the colo n. XR/XR KUB [id number] Impression: 1. Left ureteral stent. 2. Left renal calcification and possible left UVJ stone.
== END 2021-01-03 07:26 | disposition home or self-care (01) ==
PROVIDERS: PCP Urology; Visit Provider Urology
DX: N20.0 Calculus of kidney (principal); Z96.0 Presence of urogenital implants
CPT/HCPCS: 74018; 81003

== ENCOUNTER 2021-01-07 10:22 | Day surgery (SDC) | payer BC, SELFPAY ==
[2021-01-04 16:23] VITALS: BMI 34.9
[2021-01-07] VITALS (8 sets, daily range): BP systolic 119–131; BP diastolic 68–89; PULSE 58–89; RESP 14–18; TEMP 36.3–36.6; O2SAT 92–98
--- NOTE | 2021-01-07 10:29 | XRR_ITS ---
PROCEDURE INFORMATION: Exam: XR Abdomen Exam date and time: 01/07/2021 10:29 AM Age: 60 years old Clinical indication: Screening exam; Other: Preop left eswl TECHNIQUE: Imaging protocol: XR of the abdomen. Views: Frontal supine view of the abdomen. 1 View. COMPARISON: CR XR KUB [id number] 01/03/2021 7:41 AM FINDINGS: Tubes, catheters and devices: A left ureteral stent projects in satisfactory position. There is a stable calcification projecting on the left kidney. No calculi are seen in the projection of the ureters or urinary bladder. Gastrointestinal tract: Normal. No bowel dilation. Bones/joints: Unremarkable. XR/XR KUB [id number] IMPRESSION: Satisfactory left ureteral stent position. Stable left nephrolithiasis.
--- NOTE | 2021-01-07 11:24 | ANES.PREANE2 ---
Pre-Anesthetic Assessment Pre-Anesthetic Assessment: Height/Weight: Height 1.65 m Weight 95.254 kg Temp Pulse Resp BP Pulse Ox 97.4 F L 69 16 131/89 98 01/07/21 11:05 01/07/21 11:05 01/07/21 11:05 01/07/21 11:05 01/07/21 11:05 Preop Diagnosis: Left renal calculus Proposed Procedure: Operation Date: 01/07/21 12:00 Proposed Procedures p Laser Lithotripsy 44274 n20.0(Left) - Sunny Maguire MD s left ESWL(Left) - Sunny Maguire MD Familial anesthetic complications: None Was Beta Clayton taken within 24 hours: Yes Was Clonidine taken within 24 hours: N/A Last intake: > 8 hrs Social: Social History: No alcohol and No tobacco Exam: Pre-Anes Outpt Exam: alert, oriented x 3, clear to auscultation bilaterally and regular rate & rhythm Airway: Cervical ROM: WNL MP: 2 Dentition: Full CV/HEM: CV/HEM: CAD (stents 5 years ago) and HTN Metabolic: Metabolic: DM and Hyperlipidemia Anesthetic Plan: ASA status: 3 Anesthesia: General Risk of > 500 ml blood loss (7ml/kg in children): No PFSH Anesthesia PFSH: Medical History Coronary artery disease Diabetes mellitus, type II non insulin requiring Diverticulosis with several admissions for diverticulitis Hyperlipidemia Hypertension Kidney stone Untreated left Surgical History History of coronary artery stent placement Family History Sister Kidney stones Father , AT 64 Heart attack Mother , AT AGE 84 Diabetes Heart disease Social History Smoking and tobacco status: never smoked Alcohol intake: never Marital status: Current occupational status: retired History of recent travel: No Data Anesthesia Cardiac Studies: No Data to Display
[2021-01-07 11:33] LABS: Glucose Point of Care 124 mg/dL (70-110)
[2021-01-07] MEDS: sodium chloride 0.9% 1,000 ML 30 ML IV (11:47)
--- NOTE | 2021-01-07 12:03 | P.HPUD_ITS ---
Surgery/Procedure H&P Update DATE OF PROCEDURE: January 07, 2021 DATE H&P PERFORMED: 01/03/21 H&P UPDATE INFORMATION: I have reviewed H&P completed within last 30 days, I have examined patient prior to procedure, No changes to prior documentation and H&P is in [facility] EMR on date indicated CHANGES TO PREVIOUS DOCUMENTATION: Confirmed off Plavix and aspirin since 12/29/2020. KUB reviewed. Same position. PREOP DIAGNOSIS: Left renal calculus PLANNED PROCEDURE: Operation Date: 01/07/21 12:00 Proposed Procedures p Laser Lithotripsy 10232 n20.0(Left) - Sunny Maguire MD s left ESWL(Left) - Sunny Maguire MD
[2021-01-07] MEDS: levofloxacin-dextrose 5 % 500 MG/100 ML PREMIX 100 MG IV (12:04)
--- NOTE | 2021-01-07 13:04 | PM.OP ---
Operative Report Date of procedure: January 07, 2021 Pre-op Diagnosis: Left renal calculus Post-op diagnosis: same Procedure Done: 1. Extracorporeal shockwave lithotripsy left renal calculus Pathology: none sent Surgeon: Andrez Platform Material Handling Supervisor: Lithotripsy Field Training Agent: Aleida Anesthesia: General Estimated blood loss: None Urine output: Not measured Complications: None Findings: 2000 shocks to the upper pole stone with excellent change 500 shocks to the lower pole stone with good change Condition: stable Disposition: PACU Brief History: Mr. Sherman is a very pleasant 60-year-old white male who was recently diagnosed with left distal ureteral stones causing obstruction and a very high white count and patient with splenectomy history. He underwent urgent ureteroscopic treatment of the stones. He was also known to have a large left upper pole stone. Ultimately he elected to try to become stone free before the stent was removed. Procedure: After routine preoperative evaluation examination and obtaining of informed consent he was taken to the operating suite on 01/07/2021 where general anesthesia was administered without difficulty after appropriate timeout was performed, SCDs confirmed to be functioning, preoperative antibiotics administered, beta-reji protocol confirmed. Position on the Dornier unit in supine position paying careful attention to avoiding pressure points. With the shock head positioned posteriorly the focal point was brought to the stone in the upper pole and easily focused upon. Therapy was initiated intensity of 1 advanced an intensity of 4. Initial rate was 70 and maintained throughout the procedure. After several 100 shocks a 3-minute pause was conducted. The stone showed early and significant change. A total of 2000 shocks were administered with positioning changes as required for real-time fluoroscopy. By the completion of the treatment the stone appeared to be mostly just small fragments were sand. The left lower pole stone which had been identified on previous CT and KUB was then brought to the focal point and 500 shocks at remain were administered to the stone with apparent change. The procedure went well. He was awakened in the operating room and returned to the recovery in stable condition. PLANS: 1. Anticipate discharge from outpatient surgery 2. Follow-up in 1 week with KUB first and a possible cystoscopy with stent removal 3. Pain medication as needed
[2021-01-07] MEDS: ondansetron 2 mg/ML SDV 2 mL 4 MG IVP (14:42)
[2021-01-07] MEDS: HYDROcodone-acetaminophen 5-325 mg Tablet 1 TAB PO (14:42)
--- NOTE | 2021-01-07 15:13 | ANE.PACU2 ---
Inpatient post-anesthesia follow up: Airway intact: Yes Vital signs: Temperature 97.9 F Pulse Rate 58 Respiratory Rate 14 Blood Pressure 119/69 Pulse Oximetry 97 Oxygen Delivery Me thod Room Air Oxygen Flow Rate 6 Fraction of Inspir ed Oxygen Hydration adequate: Yes Nausea and vomiting: No Pain level: 2 Mental status: Baseline
== END 2021-01-07 15:00 | disposition home or self-care (01) ==
PROVIDERS: PCP Urology; Visit Provider Urology
PROC: (CPT 50590; 2021-01-07 12:00)
DX: N20.0 Calculus of kidney (principal); I25.10 Atherosclerotic heart disease of native coronary artery without angina pectoris; Z95.5 Presence of coronary angioplasty implant and graft; I10 Essential (primary) hypertension; E11.9 Type 2 diabetes mellitus without complications; E78.5 Hyperlipidemia, unspecified; Z79.82 Long term (current) use of aspirin
CPT/HCPCS: 50590; 36416; 74018; 82962; 96374; J1100; J1956; J2405; J2704; J2710; J3010; J3490; J7030

== ENCOUNTER 2021-01-16 07:25 | Outpatient (CLI) | payer BC, SELFPAY ==
--- NOTE | 2021-01-16 07:15 | XR_ITS ---
WS: [id number] XR KUB [id number] REASON FOR EXAM: KIDNEY STONE FINDINGS: Left ureteral stent remains in place unchanged compared to 01/07/2021. Left upper pole calculus has be en fractured there is some debris in the dependent lower pole of the left kidney and also debris seen along the proximal aspect of the ureteral stent. Bladder fragments not readily identified. XR/XR KUB [id number] IMPRESSION: Left ureteral stent with interval fragmentation of upper pole calculus as above .
== END 2021-01-16 07:26 | disposition home or self-care (01) ==
PROVIDERS: PCP Urology; Visit Provider Urology
DX: N20.0 Calculus of kidney (principal); Z96.0 Presence of urogenital implants
CPT/HCPCS: 74018; 81003

== ENCOUNTER 2021-02-11 09:08 | Outpatient (CLI) | payer BC, SELFPAY ==
--- NOTE | 2021-02-11 09:00 | XR_ITS ---
WS: [id number] Exam: XR KUB [id number] Date/Time of Exam: 02/11/2021 9:00 AM Reason For Exam: UROLITHIASIS Comparison 01/16/2021. No bowel obstruction or free air. A left-sided ureteral stent catheter is in place appearing to be in appropriate location. Visualized organ margins appear normal. Several nonspecific small pelvic calci fications noted. Degenerative changes and dextroscoliosis of the lumbar spine. XR/XR KUB [id number] IMPRESSION: 1. Left-sided ureteral stent catheter in satisfactory position. 2. No acute abdominal process.
== END 2021-02-11 09:09 | disposition home or self-care (01) ==
PROVIDERS: PCP Urology; Visit Provider Urology
DX: N20.9 Urinary calculus, unspecified (principal); Z96.0 Presence of urogenital implants
CPT/HCPCS: 74018; 81003